=== PATIENT | female | born 1990 | race Caucasian/White ===

== ENCOUNTER 2018-05-04 11:30 | Emergency (ER) | payer OTHER, SELFPAY ==
--- NOTE | 2018-05-04 13:07 | RAD REPORT ---
EXAM DESCRIPTION: Guillaume Merritt (2 Views)05/04/2018 1:00 pm CLINICAL HISTORY: Cough COMPARISON: None FINDINGS: The lungs appear clear of acute infiltrate. The heart is normal size IMPRESSION: No acute abnormalities displayed
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
== END 2018-05-04 13:40 | disposition home or self-care (01) ==
LOC: ER 11:30
DX: R07.1 Chest pain on breathing (principal); F17.210 Nicotine dependence, cigarettes, uncomplicated; Z88.6 Allergy status to analgesic agent; Z98.82 Breast implant status
CPT/HCPCS: 71046; 99283

== ENCOUNTER 2018-11-22 17:52 | Emergency (ER) | payer SELFPAY ==
[2018-11-22] MEDS ORDERED: ACT CHARCOAL/SORB 50 GM/240ML ONE (18:23)
[2018-11-22 18:24] LABS: Absolute Lymphocytes (CBC) 1.9 K/uL (0.7-4.9); Absolute Monocytes 0.5 K/uL (0.1-1.3); Absolute Neutrophil 6.9 K/uL (1.8-8.0); Basophils % 0.4 % (0-1.3); Eosinophils % 1.8 % (0-4.4); Hematocrit 44.1 % (36.0-45.0); MPV 7.7 fL (7.6-11.3); Monocytes % 5.6 % (3.3-12.3); RBC Red Blood Cell Count 4.71 M/uL (3.86-4.86)
[2018-11-22 18:31] LABS: Protime INR 1.03
[2018-11-22] MEDS ORDERED: NA CHLORIDE 0.9% 1,000 ML ONE ×2 (18:36→19:43)
[2018-11-22 18:51] LABS: ALT/SGPT 21 U/L (12-78); AST/SGOT 17 U/L (15-37); Albumin 4.1 g/dL (3.4-5.0); Alkaline Phosphatase 40 U/L (45-117); BUN Blood Urea Nitrogen 14 mg/dL (7-18); Bicarbonate 28 mmol/L (21-32); Bilirubin Direct 0.1 mg/dL (0-0.2); Bilirubin Total 0.5 mg/dL (0.2-1.0); Glucose Level 93 mg/dL (74-106); Potassium 3.5 mmol/L (3.5-5.1); Protein, Total 7.7 g/dL (6.4-8.2); Sodium Level 142 mmol/L (136-145)
[2018-11-22] MEDS ORDERED: LORazepam 2 MG/ML VIAL ONE (19:56)
--- NOTE | 2018-11-22 21:24 | ER ---
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 Patient states she aj "doesn't know" if she wants to hurt herself. Transition of care: patient was not received from another setting of care. Onset of symptoms was November 22, 2018 at 17:30. Risk Assessment: Do you want to hurt yourself or someone else? Unable to obtain. Care prior to arrival: None. 17:59 Method Of Arrival: Ambulatory aj 17:59 Acuity: SHAY 2 aj 18:02 Note Poison control recommends charcoal with full tox work up. Watch for seizure or DC. aj Give benzo for seizure. 18:38 Initial Sepsis Screen: Does the patient meet any 2 criteria? No. Patient's initial ph sepsis screen is negative. Does the patient have a suspected source of infection? No. Patient's initial sepsis screen is negative. Triage Assessment: 18:01 General: Appears in no apparent distress. Behavior is flat. Pain: Denies pain. Neuro: aj Level of Consciousness is awake, alert, obeys commands, Oriented to person, place, time, situation, Appropriate for age. Respiratory: Airway is patent Respiratory effort is even, unlabored, Respiratory pattern is regular, symmetrical. Derm: Skin is intact, is healthy with good turgor, Skin is pink, warm \\T\\ dry. normal. Historical: - Allergies: 18:01 Ibuprofen; aj - Immunization history:: Adult Immunizations unknown. - Social history:: Smoking status: unknown Patient/guardian denies using alcohol, street drugs, The patient lives alone, with family. - Ebola Screening: : No symptoms or risks identified at this time. - Family history:: not pertinent. Screenin:37 Abuse screen: Denies threats or abuse. Denies injuries from another. Nutritional ph screening: No deficits noted. Tuberculosis screening: No symptoms or risk factors identified. Fall Risk None identified. Assessment: 18:05 General: Appears in no apparent distress. comfortable, well groomed, Behavior is ph cooperative, drowsy, flat, quiet, Pt states " I don't want to ." When questioned about why she took the medication states, " I don't know.". Pain: Denies pain. Neuro: Level of Consciousness is awake, obeys commands, lethargic, Oriented to person, place, time, situation. Cardiovascular: Reports nausea, palpitations, Denies chest pain, vomiting, Capillary refill < 3 seconds in bilateral fingers Patient's skin is warm and dry. Respiratory: Airway is patent Respiratory effort is even, unlabored, Respiratory pattern is regular, symmetrical. GI: Abdomen is flat, non-distended, Reports nausea. Derm: Skin is intact, is healthy with good turgor, Skin is pink, warm \\T\\ dry. Musculoskeletal: Circulation, motion, and sensation intact. Range of motion: intact in all extremities. 18:48 Reassessment: Pt drank less than half of activated charcoal, states, " I can't do ph anymore." Remains lethargic, VSS remain stable at this time, HR 80 bpm NSR. 19:21 Reassessment: Patient appears in no apparent distress at this time. Reassessment: lp1 Patient states "I don't feel good, I just feel shaky". Neuro: Level of Consciousness is awake, obeys commands, lethargic, Oriented to person, place, situation. Respiratory: Respiratory effort is even, unlabored. Derm: Skin is pink, warm \\T\\ dry. 19:30 Reassessment: Provider notified of patient complaint of feeling shaky; Friends at lp1 bedside with patient. 20:30 Reassessment: Patient appears in no apparent distress at this time. Patient is alert, lp1 oriented x 3, equal unlabored respirations, skin warm/dry/pink. Patient's mother and friend at bedside. 21:30 Reassessment: Patient appears in no apparent distress at this time. No changes from lp1 previously documented assessment. 23:15 Reassessment: Patient expresses wanting to go home at this time; pulled out IV to R AC; lp1 Provider notified; Dr. Nolasco aware; Mental Health notified of warrant for patient. 23:20 Reassessment: Patient requesting to go to bathroom, assisted by instructional technology facilitator, refusal to lp1 collect urine specimen. Neuro: Level of Consciousness is awake, alert, obeys commands, Oriented to person, place, time, situation, Gait is steady. 23:24 Reassessment: MICHAEL REEVES at bedside with patient; Patient states "I don't know why I have to lp1 stay, I'm not even suicidal". 11/23 00:00 Reassessment: Mental Health deputy at bedside with MICHAEL REEVES discussing warrant with lp1 patient; Patient agitated, crying, states "I'm not fucking suicidal, I don't know why you have to treat me like a prisoner". 01:00 Reassessment: Patient states "I don't want to be all alone here"; Patient requesting to lp1 have Ileana, her cousin called at [phone]; Ileana contacted, states she will visit if she can, patient aware. 01:07 Reassessment: Patient requesting to have best friend called, David at [phone]; no lp1 response. Overdose: 11/22 18:05 Patient took approx 30-35 phentermine. Overdose occurred 30 minutes to 1 hour ago. ph Vital Signs: 18:02 BP 155 / 93; Pulse 88; Resp 16; Temp 98.3; Pulse Ox 99% on R/A; Weight 63.5 kg; Height aj 5 ft. 5 in. (165.10 cm); 18:52 BP 152 / 91; Pulse 84; Resp 18; Pulse Ox 100% on R/A; ph 19:20 BP 162 / 105; Pulse 82; Resp 14; Temp 98.8(O); Pulse Ox 100% on R/A; lp1 19:45 BP 146 / 99; Pulse 86; Resp 14; Pulse Ox 100% on R/A; lp1 20:38 BP 145 / 96; Pulse 87; Resp 14; Pulse Ox 100% on R/A; aa1 21:00 BP 142 / 91; Pulse 86; Resp 14; Pulse Ox 100% on R/A; lp1 22:00 BP 150 / 95; Pulse 87; Resp 16; Pulse Ox 99% on R/A; lp1 11/23 01:05 BP 136 / 89; Pulse 83; Resp 18; Pulse Ox 100% on R/A; lp1 01:06 BP 136 / 89; Pulse 90; Pulse Ox 100% ; ag4 11/22 18:02 Body Mass Index 23.30 (63.50 kg, 165.10 cm) aj Henderson Coma Score: 11/22 19:20 Eye Response: spontaneous(4). Verbal Response: oriented(5). Motor Response: obeys lp1 commands(6). Total: 15. ED Course: 17:56 Patient arrived in ED. tw3 18:01 Triage completed. aj 18:02 Arm band placed on left wrist. Patient placed in an exam room. aj 18:03 Marissa Kothari, RN is Primary Nurse. ph 18:06 Carlos Nolasco MD is Attending Physician. oskar 18:14 Initial lab(s) drawn, by me, sent to lab. Inserted saline lock: 18 gauge in right ms antecubital area, using aseptic technique. Blood collected. 18:15 Safety Checks: The door is open or patient has been placed in a hallway bed/chair. ph Items have not been removed from patient due to or because: pt currently denies SI, placed in gown and personal items placed in belongings bag and at bedside There are no family/friend visitors at this time Sitter present at this time. 18:30 Safety Checks: The door is open or patient has been placed in a hallway bed/chair. ph Items have not been removed There are no family/friend visitors at this time Sitter present at this time. 18:39 Patient has correct armband on for positive identification. Placed in gown. Bed in low ph position. Call light in reach. Side rails up X2. Side rails up X2. Seizure precautions initiated. quality assurance monitor chassis on. Pulse ox on. NIBP on. 18:45 Safety Checks: The door is open or patient has been placed in a hallway bed/chair. ph Items have not been removed Sitter present at this time. 18:45 Safety checks: Items removed: yes. Door open/sign placed on door: yes. Family/friend ag4 present: yes. Sitter present: Yes. 19:00 Safety checks: Items removed: yes. Door open/sign placed on door: yes. Family/friend ag4 present: yes. Sitter present: Yes. 19:15 Safety checks: Items removed: yes. Door open/sign placed on door: yes. Family/friend ag4 present: yes. Sitter present: Yes. 19:30 Safety checks: Items removed: yes. Door open/sign placed on door: yes. Family/friend ag4 present: yes. Sitter present: Yes. 19:37 Attending Physician role handed off by Carlos Nolasco MD ma2 19:37 Tami Walter MD is Attending Physician. ma2 19:45 Safety checks: Items removed: yes. Door open/sign placed on door: yes. Family/friend ag4 present: yes. Sitter present: Yes. 20:00 Safety checks: Items removed: yes. Door open/sign placed on door: yes. Family/friend ag4 present: yes. Sitter present: Yes. 20:15 Safety checks: Items removed: yes. Door open/sign placed on door: yes. Family/friend ag4 present: yes. Sitter present: Yes. 20:30 Safety checks: Items removed: yes. Door open/sign placed on door: yes. Family/friend ag4 present: yes. Sitter present: Yes. 20:45 Safety checks: Items removed: yes. Door open/sign placed on door: yes. Family/friend ag4 present: yes. Sitter present: Yes. 21:00 Safety checks: Items removed: yes. Safety checks: Door open/sign placed on door: yes. ag4 Family/friend present: yes. Sitter present: Yes. 21:15 Safety checks: Items removed: yes. Door open/sign placed on door: yes. Family/friend ag4 present: yes. Sitter present: Yes. 21:19 Simi Nolasco MD is Hospitalizing Provider. ma2 21:30 Safety checks: Items removed: yes. Door open/sign placed on door: yes. Family/friend ag4 present: yes. Sitter present: Yes. 21:40 No provider procedures requiring assistance completed. lp1 21:41 Patient admitted, IV remains in place. lp1 21:45 Safety checks: Items removed: yes. Door open/sign placed on door: yes. Family/friend ag4 present: yes. Sitter present: Yes. 22:00 Safety checks: Items removed: yes. Door open/sign placed on door: yes. Family/friend ag4 present: yes. Sitter present: Yes. 22:15 Safety checks: Items removed: yes. Door open/sign placed on door: yes. Family/friend ag4 present: yes. Sitter present: Yes. 22:30 Safety checks: Items removed: yes. Door open/sign placed on door: yes. Family/friend ag4 present: yes. Sitter present: Yes. 11/23 07:00 Safety checks: Items removed: yes. Door open/sign placed on door: yes. Family/friend mh5 present: no. Sitter present: Yes. 07:15 Safety checks: Items removed: yes. Door open/sign placed on door: yes. Family/friend mh5 present: no. Sitter present: Yes. 07:30 Safety checks: Items removed: yes. Door open/sign placed on door: yes. Family/friend mh5 present: no. Sitter present: Yes. 07:31 Primary Nurse role handed off by Marissa Kothari RN 07:31 Livier Henderson RN is Primary Nurse. sv Administered Medications: 11/22 18:19 Drug: NS 0.9% 1000 ml Route: IV; Rate: 1 bolus; Site: right antecubital; ph 19:19 Follow up: IV Status: Completed infusion; IV Intake: 1000ml lp1 18:19 Drug: Charcoal Suspension 70 grams Route: PO; ph 19:30 Drug: NS 0.9% 1000 ml Route: IV; Rate: 125 ml/hr; Site: right antecubital; lp1 23:15 Follow up: IV Status: IV converted to saline lock; Patient pulled out IV lp1 19:44 Drug: Ativan 1 mg Route: IVP; Site: right antecubital; lp1 20:30 Follow up: Response: No adverse reaction; Marked relief of symptoms lp1 Intake: 19:19 IV: 1000ml; Total: 1000ml. lp1 Outcome: 21:23 Decision to Hospitalize by Provider. ma2 11/23 01:08 Admitted to ER Hold. Please see [facility] for further documentation. lp1 Condition: stable Instructed on the need for admit. 09:39 Patient left the ED. sv Signatures: Livier Henderson RN RN sv Autenrieth, Alissa, RN RN aaRadha Greene RN RN aj Anderson, Corey, MD MD cha Solis, Maria ms Pena, Laura, RN RN 1 Marissa Kothari RN RN ph Martinez, Maria Conrad Willson Lorie tw3 Tami Walter MD MD ma2 Kian Doe ag4 Corrections: (The following items were deleted from the chart) 11/22 18:52 18:05 General: Appears in no apparent distress. comfortable, well groomed, Behavior is ph cooperative, drowsy, flat, quiet, ph 19:46 19:30 Reassessment: Provider notified of patient complaint of feeling shaky lp1 lp1 23:25 23:24 Reassessment: [place] [employer] at bedside with patient lp1 lp1 23:30 23:20 Reassessment: Patient requesting to go to bathroom, assisted by instructional technology facilitator lp1 lp1 11/23 01:10 01:06 BP 136 / 89; Pulse 90bpm; Temp 100F Oral; ag4 ag4
--- NOTE | 2018-11-22 21:24 | EDPHYS ---
Physician Documentation [facility] Name: Mi Way Age: 28 yrs Sex: Female : 1990 Arrival Date: 11/22/2018 Time: 17:56 Bed 7 Private MD: ED Physician Tami Walter HPI: 11/22 21:16 This 28 yrs old Female presents to ER via Ambulatory with complaints of ma2 Overdose. 21:16 This 28 yrs old Female presents to ER via Ambulatory with complaints of ma2 Overdose. 21:16 The patient presents to the emergency department with a possible overdose. ma2 21:17 Context: Method:. Associated signs and symptoms: Pertinent negatives: apnea, ma2 depression, incontinence, tearfulness. Severity of symptoms: At their worst the symptoms were moderate. ingested adipex 30 tab prior to arrival, awake alert feels weak she denies si or hi and state she does not know why she OD. she has no health issues, poison control recomends supportive care and observation for 12 hrs . Historical: - Allergies: 18:01 Ibuprofen; aj - Immunization history:: Adult Immunizations unknown. - Social history:: Smoking status: unknown Patient/guardian denies using alcohol, street drugs, The patient lives alone, with family. - Ebola Screening: : No symptoms or risks identified at this time. - Family history:: not pertinent. ROS: 21:17 Constitutional: Negative for fever, chills, and weight loss. ma2 21:17 All other systems are negative. Exam: 21:17 Constitutional: This is a well developed, well nourished patient who is awake, alert, ma2 and in no acute distress. Chest/axilla: Normal chest wall appearance and motion. Nontender with no deformity. No lesions are appreciated. Cardiovascular: Regular rate and rhythm with a normal S1 and S2. No gallops, murmurs, or rubs. Normal PMI, no JVD. No pulse deficits. Respiratory: Lungs have equal breath sounds bilaterally, clear to auscultation and percussion. No rales, rhonchi or wheezes noted. No increased work of breathing, no retractions or nasal flaring. Abdomen/GI: Soft, non-tender, with normal bowel sounds. No distension or tympany. No guarding or rebound. No evidence of tenderness throughout. MS/ Extremity: Pulses equal, no cyanosis. Neurovascular intact. Full, normal range of motion. Neuro: Awake and alert, GCS 15, oriented to person, place, time, and situation. Cranial nerves II-XII grossly intact. Motor strength 5/5 in all extremities. Sensory grossly intact. Cerebellar exam normal. Normal gait. Psych: Awake, alert, with orientation to person, place and time. Behavior, mood, and affect are within normal limits. Vital Signs: 18:02 BP 155 / 93; Pulse 88; Resp 16; Temp 98.3; Pulse Ox 99% on R/A; Weight 63.5 kg; Height aj 5 ft. 5 in. (165.10 cm); 18:52 BP 152 / 91; Pulse 84; Resp 18; Pulse Ox 100% on R/A; ph 19:20 BP 162 / 105; Pulse 82; Resp 14; Temp 98.8(O); Pulse Ox 100% on R/A; lp1 19:45 BP 146 / 99; Pulse 86; Resp 14; Pulse Ox 100% on R/A; lp1 20:38 BP 145 / 96; Pulse 87; Resp 14; Pulse Ox 100% on R/A; aa1 21:00 BP 142 / 91; Pulse 86; Resp 14; Pulse Ox 100% on R/A; lp1 22:00 BP 150 / 95; Pulse 87; Resp 16; Pulse Ox 99% on R/A; lp1 11/23 01:05 BP 136 / 89; Pulse 83; Resp 18; Pulse Ox 100% on R/A; lp1 01:06 BP 136 / 89; Pulse 90; Pulse Ox 100% ; ag4 11/22 18:02 Body Mass Index 23.30 (63.50 kg, 165.10 cm) aj Maul Coma Score: 11/22 19:20 Eye Response: spontaneous(4). Verbal Response: oriented(5). Motor Response: obeys lp1 commands(6). Total: 15. MDM: 18:06 Patient medically screened. oskar 21:17 Differential diagnosis: polypharmacy, over medication, hypoglycemia. Data reviewed: ma2 vital signs, nurses notes. Counseling: I had a detailed discussion with the patient and/or guardian regarding: the historical points, exam findings, and any diagnostic results supporting the discharge/admit diagnosis, the presence of at least one elevated blood pressure reading (>120/80) during this emergency department visit, the need for further work-up and treatment in the hospital. Response to treatment: the patient's symptoms have mildly improved after treatment. 11/22 18:04 Order name: Acetaminophen 11/22 18:04 Order name: Basic Metabolic Panel 11/22 18:04 Order name: CBC with Diff 11/22 18:04 Order name: ETOH Level; Complete Time: 19:00 11/22 18:04 Order name: Hepatic Function; Complete Time: 19:00 11/22 18:04 Order name: PT-INR; Complete Time: 19:00 11/22 18:04 Order name: Ptt, Activated; Complete Time: 19:00 11/22 18:04 Order name: Salicylate; Complete Time: 19:39 11/22 18:04 Order name: Urine Drug Screen 11/22 18:04 Order name: Acetaminophen ph 11/22 18:04 Order name: Basic Metabolic Panel ph 11/22 18:04 Order name: CBC with Diff ph 11/22 18:04 Order name: ETOH Level ph 11/22 18:04 Order name: Hepatic Function ph 11/22 18:04 Order name: PT-INR ph 11/22 18:04 Order name: Ptt, Activated ph 11/22 18:04 Order name: Salicylate ph 11/22 18:04 Order name: Urine Drug Screen ph 11/22 18:05 Order name: Acetaminophen Level; Complete Time: 19:00 EDLA 11/22 18:05 Order name: Basic Metabolic Panel; Complete Time: 19:00 EDLA 11/22 18:05 Order name: CBC with Automated Diff; Complete Time: 19:00 EDLA 11/22 18:15 Order name: Test, Serum; Complete Time: 19:39 ms 11/23 06:48 Order name: Urine Dipstick--Ancillary (enter results) [facility] 11/23 06:48 Order name: Urine --Ancillary (enter results) [facility] 11/23 07:08 Order name: CBC with Automated Diff EDLA 11/23 07:33 Order name: Urine --Ancillary EDMS 11/23 07:33 Order name: Urine Dipstick-Ancillary EDMS 11/23 07:49 Order name: Comprehensive Metabolic Panel EDLA 11/22 18:04 Order name: EKG; Complete Time: 18:06 11/22 18:04 Order name: EKG - Nurse/Tech; Complete Time: 19:24 11/22 18:04 Order name: IV Saline Lock; Complete Time: 19:24 11/22 18:04 Order name: Labs collected and sent; Complete Time: 19:23 11/22 18:04 Order name: EKG; Complete Time: 18:07 ph 11/22 18:04 Order name: EKG - Nurse/Tech; Complete Time: 18:15 ph 11/22 18:04 Order name: IV Saline Lock; Complete Time: 18:15 ph 11/22 18:04 Order name: Labs collected and sent; Complete Time: 18:15 ph 11/22 18:04 Order name: Urine Dipstick-Ancillary (obtain specimen); Complete Time: 18:15 ph 11/23 07:38 Order name: Diet Regular; Complete Time: 07:41 mh5 Administered Medications: 18:19 Drug: NS 0.9% 1000 ml Route: IV; Rate: 1 bolus; Site: right antecubital; ph 19:19 Follow up: IV Status: Completed infusion; IV Intake: 1000ml lp1 18:19 Drug: Charcoal Suspension 70 grams Route: PO; ph 19:30 Drug: NS 0.9% 1000 ml Route: IV; Rate: 125 ml/hr; Site: right antecubital; lp1 23:15 Follow up: IV Status: IV converted to saline lock; Patient pulled out IV lp1 19:44 Drug: Ativan 1 mg Route: IVP; Site: right antecubital; lp1 20:30 Follow up: Response: No adverse reaction; Marked relief of symptoms lp1 Disposition: 11/22/18 21:23 Hospitalization ordered by Simi Nolasco for Observation. Preliminary diagnosis is Poisoning by unspecified drugs, medicaments and biological substances, undetermined. - Bed requested for [facility] ER HOLD. - Status is Observation. sv - Condition is Stable. - Problem is new. - Symptoms are unchanged. UTI on Admission? No Signatures: Dispatcher [employer] EDLivier Hernandez RN RN sv Myers, Amanda, RN RN aj Anderson, Corey, MD MD cha Chretien, Felicia, RN RN Zari Galvan RN RN lp1 Marissa Kothari RN RN ph Tami Walter MD MD ma2 Corrections: (The following items were deleted from the chart) 18:07 18:07 Acetaminophen Level ordered. EDMS EDMS 21:25 21:23 Hospitalization Ordered by Simi Nolasco MD for Observation. Preliminary fc diagnosis is Poisoning by unspecified drugs, medicaments and biological substances, undetermined. Bed requested for Telemetry/MedSurg (observation). Status is Observation. Condition is Stable. Problem is new. Symptoms are unchanged. UTI on Admission? No. ma2 11/23 09:39 11/22 21:25 11/22/2018 21:23 Hospitalization Ordered by Simi Nolasco MD for sv Observation. Preliminary diagnosis is Poisoning by unspecified drugs, medicaments and biological substances, undetermined. Bed requested for [facility] ER HOLD. Status is Observation. Condition is Stable. Problem is new. Symptoms are unchanged. UTI on Admission? No. fc
--- NOTE | 2018-11-22 22:06 | P.HP ---
Certification for Inpatient Patient admitted to: Observation With expected LOS: <2 Midnights Practitioner: I am a practitioner with admitting privileges, knowledge of patient current condition, hospital course, and medical plan of care. Services: Services provided to patient in accordance with Admission requirements found in Title 42 Section 412.3 of the Code of Federal Regulations Patient History Date of Service: 11/22/18 Reason for admission: suicidal attempt History of Present Illness: Ms Way is a 28 years old woman with history of alcohol abuse, depression and possible some psychiatry condition non-diagnosed yet, who came to ED after take about 30 pills of Adipex. She states that did not have good explanation why she did it. According to her mother, the patient had history of previous suicidal attempt. At arrival, the patient was alert and oriented, stable vital signs. She got activated charcoal. ED was in contact with poison control who has recommended to observe the patient for 24 Hr for potential seizures. Allergies ibuprofen Allergy (Verified 05/04/18 12:45) Itching - Past Medical/Surgical History -: depression -: alcohol abuse Past Surgical History: Reviewed- Non-Contributory - Family History Family History: Reviewed- Non-Contributory - Social History Smoking Status: Current every day smoker Alcohol use: Yes CD- Drugs: No Place of Residence: Home Review of Systems 10-point ROS is otherwise unremarkable Physical Examination - Physical Exam General: Alert, In no apparent distress HEENT: Atraumatic, PERRLA, Mucous membr. moist/pink, EOMI, Sclerae nonicteric Neck: Supple, 2+ carotid pulse no bruit, No LAD, Without JVD or thyroid abnormality Respiratory: Clear to auscultation bilaterally, Normal air movement Cardiovascular: Regular rate/rhythm, Normal S1 S2 Gastrointestinal: Normal bowel sounds, No tenderness Musculoskeletal: No tenderness Integumentary: No rashes Neurological: Normal speech, Normal strength at 5/5 x4 extr, Normal tone, Abnormal affect (flat affect) Lymphatics: No axilla or inguinal lymphadenopathy - Studies Laboratory Data (last 24 hrs) 11/22/18 18:06: PT 12.1, INR 1.03, APTT 31.0 11/22/18 18:06: WBC 9.6, Hgb 14.7, Hct 44.1, Plt Count 225 11/22/18 18:06: Sodium 142, Potassium 3.5, BUN 14, Creatinine 0.82, Glucose 93, Total Bilirubin 0.5, AST 17, ALT 21, Alkaline Phosphatase 40 L Assessment and Plan - Problems (Diagnosis) (1) Suicide attempt Current Visit: Yes Status: Acute (2) Drug overdose Current Visit: Yes Status: Acute Qualifiers: Encounter type: initial encounter Injury intent: intentional self-harm Qualified Code(s): T50.902A - Poisoning by unspecified drugs, medicaments and biological substances, intentional self-harm, initial encounter (3) Alcohol abuse Current Visit: Yes Status: Acute - Plan The patient will be admitted to the hospital due suicidal attempt. She will be on suicidal precaution. Once clinically stable, she needs evaluation by mental health department before discharge. Continue seizure precautions. - Advance Directives Does patient have a Living Will: No Does patient have a Durable POA for Healthcare: No - Code Status/Comfort Care Code Status Assessed: Yes Code Status: Full Code
[2018-11-23] MEDS ORDERED: NA CHLORIDE 0.9% 1,000 ML IV SCH (01:07)
[2018-11-23] MEDS ORDERED: ONDANSETRON 4 MG/2 ML VIAL IV PRN (01:07)
[2018-11-23 07:07] LABS: Absolute Lymphocytes (CBC) 1.8 K/uL (0.7-4.9); Absolute Monocytes 0.6 K/uL (0.1-1.3); Absolute Neutrophil 5.9 K/uL (1.8-8.0); Basophils % 0.3 % (0-1.3); Eosinophils % 3.7 % (0-4.4); Hematocrit 43.5 % (36.0-45.0); Lymphocytes % 20.5 % (15.3-44.8); MPV 7.7 fL (7.6-11.3); Monocytes % 6.5 % (3.3-12.3); RBC Red Blood Cell Count 4.69 M/uL (3.86-4.86)
[2018-11-23 07:19] LABS: Barbiturates NEGATIVE (NEGATIVE); Benzodiazepines NEGATIVE (NEGATIVE); Cocaine NEGATIVE (NEGATIVE); METHAMPHETAM POSITIVE (NEGATIVE); Methadone NEGATIVE (NEGATIVE); Opiates NEGATIVE (NEGATIVE); Phencyclidine NEGATIVE (NEGATIVE); THC Cannibis NEGATIVE (NEGATIVE)
[2018-11-23 07:32] LABS: Urine Blood 2+ (NEG); Urine Glucose NEGATIVE (NEG); Urine Protein 1+ (NEG)
[2018-11-23 07:47] LABS: Albumin 3.7 g/dL (3.4-5.0); Bilirubin Total 0.7 mg/dL (0.2-1.0); Potassium 3.5 mmol/L (3.5-5.1)
--- NOTE | 2018-11-23 12:05 | EKG ---
Test Date: 2018-11-22 Test Time: 18:31:40 Early Childhood Educator Aide: MEASUREMENT RESULTS: Intervals: Rate: 90 UT: 118 QRSD: 94 QT: 376 QTc: 459 [place]: P: 42 UT: 118 QRS: 14 T: 52 INTERPRETIVE STATEMENTS: Normal sinus rhythm Normal ECG Compared to ECG 10/29/2009 19:09:00 No significant changes Electronically Signed On 11-23-18 12:02:36 CDT by Marcial Jarquin
--- NOTE | 2018-11-23 13:51 | P.SSS ---
Patient History Date of Service: 11/23/18 Primary Care Provider: None Reason for admission: suicidal attempt History of Present Illness: 28-year-old female presented to the emergency room with overdose of Adipex. Patient admitted taking several doses of Adipex. Initially she said over 20 pills then she reported less than 5 pills. She reports taking the medication for increase energy. Medication has been prescribed for her for weight loss. When the patient was initially evaluated in the emergency room. There was some question of suicide ideation. Patient was admitted for evaluation. During the course of her stay patient was monitored closely. No significant changes noted. During the course of her stay patient was very belligerent and difficult with staff. Police had to come out to address this in detail. As the patient improved patient became more cooperative. Urine was suspicious for UTI. Patient was asymptomatic. No need for treatment was required. Lab was positive for amphetamines. Patient later reported no suicidal ideation. She understands what she did was wrong and inappropriate. She does not plan to do this again. There is history of depression, tobacco and alcohol use. Patient was assessed by [facility]. They did not feel that she was suicidal. The recommendation was to discharge and follow up with him. Recommendation was also to discontinue Adipex. Allergies ibuprofen Allergy (Verified 05/04/18 12:45) Itching - Past Medical/Surgical History Diabetic: No -: Depression -: Alcohol abuse -: Tobacco abuse Past Surgical History: Reviewed- Non-Contributory Psychosocial/ Personal History: Patient lives at home. She has children. - Family History Family History: Reviewed- Non-Contributory - Social History Smoking Status: Current every day smoker Alcohol use: Yes CD- Drugs: No Place of Residence: Home Review of Systems General: As per HPI Eyes: Unremarkable ENT: Unremarkable Respiratory: Unremarkable Cardiovascular: Unremarkable Gastrointestinal: Unremarkable Genitourinary: Unremarkable Musculoskeletal: Unremarkable Integumentary: Unremarkable Neurological: Unremarkable Lymphatics: Unremarkable Physical Examination - Vital Signs Temperature: 98.4 F Blood Pressure: 153/103 Pulse: 74 Respirations: 18 Pulse Ox (%): 100 - Physical Exam General: Alert, In no apparent distress, Oriented x3, Cooperative HEENT: Atraumatic, Normocephalic, PERRLA, Mucous membr. moist/pink Neck: Supple Respiratory: Clear to auscultation bilaterally, Normal air movement Cardiovascular: Normal pulses, Regular rate/rhythm Gastrointestinal: Normal bowel sounds, Non-distended, No masses, No rebound, No guarding Musculoskeletal: No erythema, No tenderness, No warmth Integumentary: No tenderness/swelling, No erythema, No warmth, No cyanosis Neurological: Normal speech, Normal strength at 5/5 x4 extr, Normal tone, Normal affect - Studies Laboratory Data (last 24 hrs) 11/23/18 06:55: Sodium 140, Potassium 3.5, BUN 12, Creatinine 0.78, Glucose 91, Total Bilirubin 0.7, AST 16, ALT 21, Alkaline Phosphatase 41 L 11/23/18 06:55: WBC 8.5, Hgb 15.1 H, Hct 43.5, Plt Count 211 11/22/18 18:06: PT 12.1, INR 1.03, APTT 31.0 11/22/18 18:06: WBC 9.6, Hgb 14.7, Hct 44.1, Plt Count 225 11/22/18 18:06: Sodium 142, Potassium 3.5, BUN 14, Creatinine 0.82, Glucose 93, Total Bilirubin 0.5, AST 17, ALT 21, Alkaline Phosphatase 40 L Treatment Summary: Impression: Drug overdose-Adipex Likely underlying depression with no suicidal ideation at this time Tobacco and alcohol abuse Asymptomatic bacteriuria Plan: Patient was assessed by [facility]. Patient not suicidal. [facility] recommends follow up within in 1-2 weeks to further address. Patient may require depression evaluation and treatment as an outpatient. Recommend no further use of Adipex. Tobacco and alcohol cessation education provided. Patient with asymptomatic bacteriuria. No need for treatment at this time. UTI prevention will be provided. Patient provided information to local PCPs to establish care and to further monitor and address. - Disposition Disposition: ROUTINE DISCHARGE Condition: GOOD Followup: [facility] [AFFILIATE - CAN NOT ADMIT] - [facility] [AFFILIATE - CAN NOT ADMIT] - [facility] [AFFILIATE - CAN NOT ADMIT] - Patient Discharge Instructions: 1. Recommend for patient to establish care with a PCP to follow up this hospitalization. 2. Patient presented with drug overdose-Adipex with suspected suicide attempt. Patient evaluated by [facility]- [facility]. No was suicidal ideation noted by [facility]. No need for inpatient psychiatric evaluation. Patient understands what she did was wrong. No suicide ideation at this time. Recommendation is for the patient follow up with MR in 1-2 weeks to follow up this hospitalization and further evaluate possible underlying depression. Recommendation is to discontinue use of Adipex due to potential side effects. 3. Patient with asymptomatic bacteriuria. No need for antibiotics at this time. UTI prevention education will be provided. 4. Patient with tobacco and alcohol abuse. Recommendation cessation education provided. Diet: AHA Activity: Ad laurent Time Spent Managing Pts Care (In Minutes): 55
== END 2018-11-23 09:32 | disposition home or self-care (01) ==
LOC: ER 17:52 → UNDOADMOB 22:00 → ERHOLD 22:00 → UNDODISOB 11-23 09:32 → ER 11-23 09:32
DX: T50.5X1A Poisoning by appetite depressants, accidental (unintentional), initial encounter (principal); F32.9 Major depressive disorder, single episode, unspecified; R82.71 Bacteriuria; Z72.0 Tobacco use; Z88.6 Allergy status to analgesic agent
CPT/HCPCS: 36415; 80048; 80053; 80076; 80307; 80320; 80329; 81003; 81025; 84703; 85025; 85610; 85730; 93005; 96361; 96374; 99285; J7030